=== PATIENT | female | born 1935 | race Caucasian/White ===

== ENCOUNTER → 2021-05-02 | Outpatient (CLI) | payer BC ==
--- NOTE | 2021-05-03 09:18 | RAD ---
Exam performed: Left foot 3 views. Clinical Indication: Left foot pain, no trauma, history of surgery. Date of Service:05/02/2021. Comparison :None available Findings: PA, oblique and lateral radiographs of the foot reveal the osseous structures to be intact and well a ligned. There are surgical screws projecting over the first metatarsal head. The joint spaces are wel l preserved and the articular margins are smooth. Impression: Radiographically normal osseous structures of the left foot. Electronically signed by: Flavia Izquierdo MD (05/03/2021 9:16 AM) [facility]
== END ==
LOC: RAD 17:21
PROVIDERS: ATTEND Family Medicine
DX: M79.672 Pain in left foot (principal)
CPT/HCPCS: 73630